=== PATIENT | female | born 1985 | race Hispanic/Latino ===

== ENCOUNTER 2017-03-27 10:31 | Emergency (ER) | payer OTHER ==
[2017-03-27 10:49] LABS: Bilirubin Negative (Negative); Blood, Urine Negative (Negative); Clarity Clear (Clear); Glucose, Urine (Dipstick) Negative (Negative); Leukocyte Small (Negative); Nitrite Negative (Negative); Protein, Urine (Dipstick) Negative (Neg-Trace); Urobilinogen 0.2 mg/dL (0.2-1.0)
[2017-03-27 11:06] LABS: Bacteria/HPF Rare-Few HPF (None Seen); RBC/HPF 0-3 HPF (0-3); Squamous Epithelial 0-3 HPF (0-3)
--- NOTE | 2017-03-27 12:18 | ULT ---
ULTRASOUND PELVIC OB WITH DOPPLER: HISTORY: Abdominal pain, . Evaluate for ectopic . Dysuria. TECHNIQUE: Real-time, mcdonough scale, color flow, and spectral analysis of the pelvis performed with a transabdomina l and transvaginal approach. FINDINGS: Single live intrauterine with average ultrasound age 10 weeks 4 days. Estimated date of de livery 10/19/17. The crown-rump length is 3.65 cm. heart rate documented at 169 b.p.m. Uterus measures 15.8 x 6.6 x 8.5 cm. Fallopian tube is not well seen. There is visualization of bot h ovaries. IMPRESSION: Single viable intrauterine with average ultrasound age of 10 weeks 4 days, estimated date o f delivery 10/19/17. POS: KAREN
[2017-03-27] MEDS ORDERED: Cephalexin 500 MG CAP ONE (12:19)
[2017-03-29 13:04] LABS: Chlamydia by PCR Not Detected (NotDetected); GC by PCR Not Detected (NotDetected)
== END 2017-03-27 12:20 | disposition home or self-care (01) ==
LOC: SCSER 10:31
DX: O23.11 Infections of bladder in pregnancy, first trimester (principal); O99.341 Other mental disorders complicating pregnancy, first trimester; F41.9 Anxiety disorder, unspecified; F32.9 Major depressive disorder, single episode, unspecified; Z87.891 Personal history of nicotine dependence; Z3A.10 10 weeks gestation of pregnancy
CPT/HCPCS: 76856; 81003; 81015; 84702; 87086; 87480; 87491; 87510; 87591; 87660; 93976

== ENCOUNTER 2017-04-15 17:20 | Emergency (ER) | payer OTHER | END 2017-04-15 18:15 | disposition home or self-care (01) | LOC: SCSER 17:20 | DX: J06.9 Acute upper respiratory infection, unspecified (principal); F41.9 Anxiety disorder, unspecified; F32.9 Major depressive disorder, single episode, unspecified; Z87.891 Personal history of nicotine dependence | CPT/HCPCS: 99283 ==

== ENCOUNTER 2017-10-14 13:13 | Inpatient (IN) | payer OTHER ==
[~2017-10-14 13:13] MED LIST: Bupivacaine/Epinephrine 0.25% 30 ML VIAL ONE
[2017-10-14 13:45] VITALS: BMI 45.3
[2017-10-14] MEDS ORDERED: Promethazine HCl 25 MG/ML VIAL IM PRN ×4 (15:00→23:17)
[2017-10-14] MEDS ORDERED: Ondansetron HCl/PF 4 MG/2 ML Vial IVP PRN ×4 (15:00→23:17)
[2017-10-14] MEDS ORDERED: Lidocaine 1% (PF) 30 ML VIAL SC PRN ×2 (15:00→15:04)
[2017-10-14] MEDS ORDERED: NS / Oxytocin 40 units/1000ml 1,000 ML IV PRN (15:04)
[2017-10-14] MEDS ORDERED: Methylergonovine 0.2 MG/ML VIAL IM PRN ×2 (15:04→23:17)
[2017-10-14] MEDS ORDERED: Misoprostol 200 MCG TAB PR PRN (15:04)
[2017-10-14] MEDS ORDERED: HYDROcodone/Acetaminophen 5/325 mg Tablet PO PRN ×3 (15:04→23:17)
[2017-10-14] MEDS ORDERED: Carboprost 250 MCG/ML AMP IM PRN (15:04)
[2017-10-14] MEDS ORDERED: Diphenoxylate HCl/Atropine Tablet PO PRN ×2 (15:04)
[2017-10-14] MEDS ORDERED: Ibuprofen 800 MG TAB PO PRN (15:04)
[2017-10-14 15:06] LABS: Hemoglobin 11.6 g/dL (12.0-16.0)
[2017-10-14 15:13] LABS: Hemoglobin 11.6 g/dL (12.0-16.0); Mean Corpuscular HGB CONC 34.7 g/dL (32.0-36.0); Mean Corpuscular Hemoglobin 30.6 pg (27.0-31.0); Mean Corpuscular Volume 88.1 fL (78.0-98.0); Mean Platelet Volume 6.8 fL (7.4-10.4); Platelet Count 198 thou/uL (130-400); RBC Distribution Width 13.1 % (11.5-14.5); Red Blood Cell (RBC) Count 3.81 mill/uL (4.20-5.40)
[2017-10-14] MEDS ORDERED: NS w/ Oxytocin 10 units 500 ML IV SCH ×2 (15:15)
[2017-10-14] MEDS ORDERED: Bupivacaine 0.5% 20 ML, fentaNYL Citrate/PF 400 MCG in Sodium Chloride 0.9% 72 ML EPIDURAL SCH (17:15)
[2017-10-14 17:26] LABS: Hep B Surf Ag Non-Reactive S/CO (NonReactive)
[2017-10-14 17:28] LABS: Syphilis Antibody Nonreactive (Nonreactive); Syphilis Antibody Index 0.04 S/CO (<1.00 Non-Reactive)
[2017-10-14] MEDS ORDERED: Eucerin (Mineral Oil/Petrolatum,White) 30 gm Jar TOP PRN (18:51)
[2017-10-14] MEDS ORDERED: diphenhydrAMINE 50 MG/ML VIAL IVP PRN (18:51)
[2017-10-14] MEDS ORDERED: Naloxone HCl 0.4 mg/ml Vial IVP PRN ×2 (18:51)
[2017-10-14] MEDS ORDERED: Acetaminophen 325 MG TAB PO PRN (18:51)
[2017-10-14] MEDS ORDERED: ePHEDrine/0.9% NaCl/PF SYRINGE 50 mg/10 ml SLOW IVP PRN (18:51)
[2017-10-14] MEDS ORDERED: Lactated Ringer's 500 ML IV PRN (18:51)
[2017-10-14] MEDS ORDERED: Communication Order-Pharmacy FS SCH (19:00)
[2017-10-14] MEDS ORDERED: fentaNYL Citrate/PF 400 MCG, Bupivacaine 0.5% 20 ML in Sodium Chloride 0.9% 72 ML EPIDURAL SCH (19:00)
[2017-10-14] MEDS: NS / Oxytocin 40 units/1000ml 1,000 ML IV PRN ×2 (19:58→21:58)
[2017-10-14] MEDS ORDERED: Milk Of Magnesia 30 ML UDCUP PO PRN (23:17)
[2017-10-14] MEDS ORDERED: NS / Oxytocin 40 units/1000ml 1,000 ML IV SCH (23:17)
[2017-10-14] MEDS ORDERED: diphenhydrAMINE 25 MG CAP PO PRN (23:17)
[2017-10-14] MEDS ORDERED: Bisacodyl 10 MG SUPP PR PRN (23:17)
[2017-10-14] MEDS ORDERED: Zolpidem Tartrate 5 MG TAB PO PRN (23:17)
[2017-10-14] MEDS ORDERED: Lanolin Ointment 7 GM TUBE TOP PRN (23:17)
[2017-10-14] MEDS ORDERED: Misoprostol 200 MCG TAB VAG PRN (23:17)
[2017-10-14] MEDS ORDERED: HYDROcodone/Acetaminophen 5/325 mg Tablet PO SCH (23:45)
[2017-10-14] MEDS ORDERED: Docusate Calcium (SURFAK) 240 MG CAP PO SCH (23:45)
[2017-10-14] MEDS ORDERED: Ibuprofen 800 MG TAB PO SCH (23:45)
[2017-10-15] MEDS: Docusate Calcium (SURFAK) 240 MG CAP PO SCH ×3 (00:04→20:20)
[2017-10-15 05:59] LABS: Hemoglobin 11.3 g/dL (12.0-16.0); Mean Corpuscular HGB CONC 34.7 g/dL (32.0-36.0); Mean Corpuscular Hemoglobin 30.8 pg (27.0-31.0); Mean Platelet Volume 6.9 fL (7.4-10.4); Platelet Count 187 thou/uL (130-400); RBC Distribution Width 13.2 % (11.5-14.5); Red Blood Cell (RBC) Count 3.67 mill/uL (4.20-5.40); White Blood Cell (WBC) Count 12.4 thou/uL (4.8-10.8)
[2017-10-15] MEDS: Ibuprofen 800 MG TAB PO SCH ×3 (08:10→21:11)
[2017-10-15] MEDS: Ferrous Sulfate 325 MG TAB PO SCH ×2 (08:57→17:36)
[2017-10-15] MEDS ORDERED: Varicella virus, LIVE 0.5 ML VIAL SC ONE (09:00)
[2017-10-15] MEDS ORDERED: Measles/Mumps/Rubella 10 MCG/0.5 ML VIAL SC ONE (09:00)
[2017-10-15] MEDS ORDERED: Adacel (T-DAP) 0.5 ML VIAL IM ONE (09:00)
[2017-10-15] MEDS: HYDROcodone/Acetaminophen 5/325 mg Tablet PO PRN ×3 (10:51→20:20)
--- NOTE | 2017-10-15 22:53 | OP ---
DATE OF SERVICE: 10/14/2017 PREOPERATIVE DIAGNOSES: Intrauterine at 38 weeks and 5 days with spontaneous labor and batsheva up B Strep negative. POSTOPERATIVE DIAGNOSES: Intrauterine at 38 weeks and 5 days with spontaneous labor and gr oup B Strep negative. PROCEDURE: Spontaneous vaginal delivery over intact perineum. FINDINGS: Viable male infant weighing 3135 grams or 6 pounds 15 ounces, Apgars of 9 and 9. COMPLICATIONS: None. DETAILS OF THE PROCEDURE: The patient presented to [facility] where she was a dmitted to the Labor and Delivery service. The patient underwent a normal and uneventful labor with normal cervical dilatation until she was found to be completely dilated. She was then allowed to pus h and was able to bring the baby down and delivered the baby in a vertex presentation without difficu lties. Once the head delivered in occiput anterior position, the shoulders followed spontaneously al cecelia with the rest of the baby's body. Once out the baby's mouth and nose were bulb suctioned. The c ord was clamped and cut and baby was handed to waiting attendants. Cord blood was collected. Gentle Fundal massage was performed and the placenta delivered intact without problems. Hemostasis was ass ured. Quantitative blood loss was calculated. Inspection of the cervix, vaginal vault, and perineum did not reveal any lacerations needing suturing. Once again, hemostasis was within normal limits an d the patient was allowed to recover in the labor and delivery room. Baby went to nursery.
[2017-10-16] MEDS: Ibuprofen 800 MG TAB PO SCH (06:40)
[2017-10-16] MEDS: Ferrous Sulfate 325 MG TAB PO SCH (07:36)
[2017-10-16 08:00] VITALS: BP 130/84; TEMP 98
[2017-10-16] MEDS: Docusate Calcium (SURFAK) 240 MG CAP PO SCH (09:37)
[2017-10-16] MEDS: HYDROcodone/Acetaminophen 5/325 mg Tablet PO PRN (09:44)
== END 2017-10-16 13:35 | disposition home or self-care (01) | DRG 775 ==
LOC: L&D 13:13 → 3SW 22:27
PROVIDERS: ADMIT Obstetrics & Gynecology; ATTEND Obstetrics & Gynecology
PROC: 10E0XZZ Delivery of Products of Conception, External Approach (ICD-10-PCS; principal; 2017-10-14)
DX: O80 Encounter for full-term uncomplicated delivery (principal); Z3A.38 38 weeks gestation of pregnancy; Z37.0 Single live birth
CPT/HCPCS: 36415; 85014; 85018; 85027; 86780; 86850; 86900; 86901; 87340; J3010; J3490; J7050

== ENCOUNTER 2018-02-14 10:47 | Emergency (ER) | payer OTHER | END 2018-02-14 11:17 | disposition home or self-care (01) | LOC: SCSER 10:47 | DX: J20.9 Acute bronchitis, unspecified (principal); F17.200 Nicotine dependence, unspecified, uncomplicated; F41.9 Anxiety disorder, unspecified; F32.9 Major depressive disorder, single episode, unspecified; Z71.6 Tobacco abuse counseling | CPT/HCPCS: 99406 ==

== ENCOUNTER 2018-05-24 12:26 | Emergency (ER) | payer OTHER ==
[2018-05-24] MEDS ORDERED: Lidocaine 1% PF 5 ML VIAL ONE (13:16)
[2018-05-24] MEDS ORDERED: Ibuprofen 200 MG TAB ONE (13:18)
== END 2018-05-24 14:20 | disposition home or self-care (01) ==
LOC: SCSER 12:26
DX: L02.413 Cutaneous abscess of right upper limb (principal); J06.9 Acute upper respiratory infection, unspecified; F41.9 Anxiety disorder, unspecified; F32.9 Major depressive disorder, single episode, unspecified
CPT/HCPCS: 10061; 87804; J2001

== ENCOUNTER 2018-11-08 09:56 | Emergency (ER) | payer OTHER | END 2018-11-08 10:34 | disposition home or self-care (01) | LOC: SCSER 09:56 | DX: J06.9 Acute upper respiratory infection, unspecified (principal); F17.210 Nicotine dependence, cigarettes, uncomplicated | CPT/HCPCS: 99407 ==

== ENCOUNTER 2018-12-20 14:48 | Emergency (ER) | payer OTHER ==
[2018-12-20 15:23] LABS: #Eosinphils 0.2 thou/uL (0.0-0.7); #Lymphocytes 1.6 thou/uL (1.20-3.40); #Monocytes 0.6 thou/uL (0.11-0.59); #Neutrophils 3.9 thou/uL (1.40-6.50); %Basophils 0.4 % (0.0-1.0); %Eosinophils 2.8 % (0.0-10.0); %Lymphocytes 25.4 % (21.0-51.0); %Monocytes 8.8 % (0.0-10.0); %Neutrophils 62.6 % (42.0-75.0); Hemoglobin 12.3 g/dL (12.0-16.0); Mean Corpuscular HGB CONC 31.9 g/dL (32.0-36.0); Mean Corpuscular Hemoglobin 27.6 pg (27.0-31.0); Mean Corpuscular Volume 86.6 fL (78.0-98.0); Mean Platelet Volume 7.4 fL (7.4-10.4); Platelet Count 231 thou/uL (130-400); RBC Distribution Width 14.2 % (11.5-14.5); Red Blood Cell (RBC) Count 4.44 mill/uL (4.20-5.40); White Blood Cell (WBC) Count 6.3 thou/uL (4.8-10.8)
[2018-12-20 15:40] LABS: ALT (SGPT) 16 U/L (8-55); AST (SGOT) 15 U/L (5-34); Albumin 3.7 g/dL (3.5-5.0); Alkaline Phosphatase 58 U/L (40-110); Anion Gap 11 mmol/L (10-20); BUN (Urea Nitrogen) 15 mg/dL (7.0-18.7); Bilirubin, Total 0.3 mg/dL (0.2-1.2); Calc. Creatinine Clearance 0 mL/min (70-130); Calcium 8.7 mg/dL (7.8-10.44); Carbon Dioxide 24 mmol/L (22-29); Chloride 109 mmol/L (98-107); Estimated GFR-MDRD Greater than 90; Globulin 3.2 g/dL (2.4-3.5); Glucose 87 mg/dL (70-105); Potassium 3.8 mmol/L (3.5-5.1); Protein, Total 6.9 g/dL (6.0-8.3); Sodium 140 mmol/L (136-145)
--- NOTE | 2018-12-20 16:02 | CT ---
CT Abdomen Pelvis W Con History: Abdominal pain. Comparison: None. Findings: Lung bases are clear. No pericardial effusion. Liver, gallbladder, spleen, adrenal glands are unremarkable. Pancreas. No dilated loops of large or s mall bowel. Prior hysterectomy. The appendix is visualized and is normal. No hydronephrosis. No retroperitoneal periaortic adenopathy. No acute osseous abnormality. Impression: No acute inflammatory process within the abdomen or pelvis. Normal appendix.
== END 2018-12-20 16:42 | disposition home or self-care (01) ==
LOC: SCSER 14:48
DX: M54.5 Low back pain (principal)
CPT/HCPCS: 36415; 74177; 80053; 85025